=== PATIENT | female | born 1965 | race Caucasian/White ===

== ENCOUNTER → 2017-03-18 | Outpatient (CLI) | payer BC ==
[~2017-03-18] MED LIST: PAXIL10 MG PO; VALIUM2 MG PO
== END ==
LOC: RAD 11:00
DX: Z12.31 Encounter for screening mammogram for malignant neoplasm of breast (principal)

== ENCOUNTER → 2018-05-28 | Outpatient (CLI) | payer BC | LOC: RAD 03:06 | DX: Z12.31 Encounter for screening mammogram for malignant neoplasm of breast (principal) ==